=== PATIENT | male | born 1975 | race Caucasian/White ===

== ENCOUNTER 2023-03-09 09:44 | Day surgery (SDC) | payer OTHER ==
[~2023-03-09] VITALS: Ht 162.6 cm; Wt 49.0 kg
[2023-03-09] VITALS (11 sets, daily range): BP systolic 96–123; BP diastolic 55–83; PULSE 64–79; RESP 12–16
[~2023-03-09 09:44] MED LIST: 0.9%NACL 1000ML 1,000 ML IV ONE; BUPR300T53 PO; DULO60CA45 PO; HYDR25TA PO; LEVO88TA4 PO; NALT50TA PO; POTASSIUM PO; TOPI100T31 PO
[2023-03-09] MEDS ORDERED: MIDAZOLAM HCL 1 MG/ML 2ML VIAL ONE (14:35)
[2023-03-09] MEDS ORDERED: PROPOFOL 10 MG/ML 20ML VIAL IV ONE (14:36)
[2023-03-09] MEDS ORDERED: GLYCOPYRROLATE 0.2 MG/ML 5 ML VIAL ONE (14:36)
[2023-03-09] MEDS ORDERED: LIDOCAINE PF 100MG/5ML (2%) SYRINGE 5ML ONE (14:36)
[2023-03-09] MEDS ORDERED: SODIUM BICARB 8.4% 50ML SYRINGE ONE (15:08)
== END 2023-03-09 16:35 | disposition home or self-care (01) ==
LOC: ENDO 09:44 → DAH 09:44 → ENDO 16:35
PROVIDERS: ATTEND Internal Medicine Gastroenterology
DX: D50.9 Iron deficiency anemia, unspecified (principal); R10.32 Left lower quadrant pain; K64.0 First degree hemorrhoids; R63.4 Abnormal weight loss; K92.1 Melena; K59.00 Constipation, unspecified; K21.00 Gastro-esophageal reflux disease with esophagitis, without bleeding; K29.50 Unspecified chronic gastritis without bleeding; K31.89 Other diseases of stomach and duodenum; I10 Essential (primary) hypertension; E78.5 Hyperlipidemia, unspecified; E03.9 Hypothyroidism, unspecified; F32.A Depression, unspecified; F17.290 Nicotine dependence, other tobacco product, uncomplicated; Z79.899 Other long term (current) drug therapy; Z98.890 Other specified postprocedural states; Z86.19 Personal history of other infectious and parasitic diseases; Z86.16 Personal history of COVID-19; Z90.89 Acquired absence of other organs; Z82.49 Family history of ischemic heart disease and other diseases of the circulatory system; Z82.3 Family history of stroke; Z83.3 Family history of diabetes mellitus; Z83.438 Family history of other disorder of lipoprotein metabolism and other lipidemia; Z72.89 Other problems related to lifestyle; Z68.1 Body mass index [BMI] 19.9 or less, adult
CPT/HCPCS: 88305; 88312; 43239; 45378; J7030 ×2; J2001; J2250; J2704; J3490 ×2; A4620; A4215 ×2; A4223; A7002; A4222; A4221; A4663; A4216; A4606

== ENCOUNTER → 2023-03-21 | Outpatient (CLI) | payer OTHER ==
[~2023-03-21] MED LIST changes: -0.9%NACL 1000ML 1,000 ML IV ONE
== END | disposition home or self-care (01) ==
LOC: RAH 15:27
PROVIDERS: ATTEND Physician Assistant Medical
DX: Z12.31 Encounter for screening mammogram for malignant neoplasm of breast (principal); R92.30 Dense breasts, unspecified
CPT/HCPCS: 77067